=== PATIENT | male | born 1970 | race Caucasian/White ===

== ENCOUNTER 2016-06-26 18:02 | Emergency (ER) | payer BC ==
--- NOTE | 2016-06-26 19:06 | ED NURSING NOTES ---
Clinical Report - Nurses [facility] [address] [place] [address] 06/26/2016 18:02 [id number] Triage time 18:Jun 26 2016. Acuity: LEVEL 3. Chief Complaint: MUSCLE ACHES, NAUSEA, VOMITING and DIARRHEA (Acting differently). MOUNIKA COMA SCORE: [place] Coma Scale: 15- eyes open spontaneously (4); best verbal response- oriented x 4 (5); best motor response- obeys commands (6). --18:14 Eulalio Rain R.N. 18:07 06/26/16. BP: 142/101. HR: 96. RR: 18. O2 saturation: 97%. Temp: 98.9 F. Pain level now 7/10. --18:14 Eulalio Rain R.N. Weight: 90.7 kg. Height/Length: 69 inches. BMI: 29.5. --18:12 Eulalio Rain R.N. Medications OxyCODONE HCl Oral. --18:12 Eulalio Rain R.N. Allergies No Known Drug Allergy. --18:12 Eulalio Rain R.N. History Arrived by EMS. Historian: patient. This started just prior to arrival. ( Was trying to get off oxycodone that he has been on for a year decided to do coke because that's how he got off oxycodone last time he was addicted. Currently is having withdrawal symptoms and is disoriented because he hasn't done coke in 6 years.). He has had fever and weakness. Reports muscle aches. No cough, difficulty breathing or skin rash. PAST MEDICAL HX: Immunizations: up-to-date. SOCIAL HX: Former smoker, end date 2010. Regular alcohol use. History of drug use: cocaine, marijuana. SELF HARM ASSESSMENT: A self harm assessment was performed. The patient answered "no" to the question "Have you recently felt down, depressed, or hopeless?" and "Do you have thoughts of harming or killing yourself?". FALL RISK ASSESSMENT: Fall risk assessment completed. No fall risk identified. NUTRITIONAL RISK ASSESSMENT: The nutritional risk assessment revealed no deficiencies. FUNCTIONAL ASSESSMENT: Functional assessment: no impairments noted. LEARNING NEEDS ASSESSMENT: The learning needs assessment revealed no barriers. ABUSE ASSESSMENT: Abuse assessment: (yes) The patient was asked "Do you feel safe in your home?". SKIN INTEGRITY ASSESSMENT: Skin integrity risk assessment completed. No skin integrity risk identified. --18:14 Eulalio Rain R.N. PROBLEMS: Upper Extremity Pain. Headache. Concussion. Gastritis. Contusion. Pancreatitis. --18:12 Eulalio Rain R.N. ADDITIONAL SURGERIES: Abd surgery. Cholecystectomy. Gallbladder Surgery. Shoulder Surgery. Wrist. --18:12 Eulalio Rain R.N. Interventions ID band on patient. --18:14 Eulalio Rain R.N. PHYSICAL ASSESSMENT To room via stretcher. GENERAL / NEURO / PSYCH: Alert. Oriented X 4. Appears in pain. HEENT: Pupils equal, round and reactive to light. No facial asymmetry noted. Mucous membranes are pink. RESPIRATORY: Respirations not labored. Chest nontender. Breath sounds within normal limits. CVS: Normal sinus rhythm noted. Capillary refill less than 2 seconds. Pulses within normal limits. GI / : ( Patient states having diarrhea and nausea). Abdomen soft. SKIN: Skin intact. Skin is warm and dry. Normal skin turgor. --18:15 Eulalio Rain R.N. NURSING PROGRESS NOTES The initial plan of care for this patient includes an assessment with efforts to address patient positioning, appropriate ambient lighting and comfortable environmental temperature; impairment of the neurological system. Pulse oximeter and NIBP monitor placed on patient. Patient gowned. Head of bed elevated 75 degrees. Reassurance given. Call light placed in reach. Side rails up x 1. Bed placed in lowest position. Brakes of bed on. --18:15 Eulalio Rain R.N. DISPOSITION / DISCHARGE 19:00 06/26/16. BP: 136/82. HR: 86. RR: 18. O2 saturation: 99%. Temp: 98.7 F. Pain level now: 08/17. 18:45 06/26/16. BP: 134/86. HR: 80. RR: 18. O2 saturation: 97%. Pain level now: 08/17. 18:30 06/26/16. BP: 132/81. HR: 87. RR: 18. O2 saturation: 98%. 18:15 06/26/16. BP: 134/86. HR: 90. RR: 18. O2 saturation: 98%. --19:21 Eulalio Rain R.N. Condition at departure: unchanged. No learning barriers present. Discharge instructions provided and reviewed with the patient. Reviewed warnings. Reviewed medication(s). Treatments reviewed. Reviewed referrals. Patient verbalized understanding. Written instructions provided in [place]. The patient was discharged home. He left the Emergency Department ambulatory. Driving (taxi). --19:21 Eulalio Rain R.N. Departure time: 19:Jun 26 2016. --19:22 Eulalio Rain R.N. Locked/Released at 07/02/2016 7:32 by Eulalio Rain R.N.
--- NOTE | 2016-06-26 19:06 | ED CLINICAL REPORT ---
Clinical Report - Physicians/Mid Levels [facility] [address] [place] [address] 06/26/2016 18:02 Patient: ART MI Time Seen: 1807. Arrived- By private vehicle. Historian- patient. HISTORY OF PRESENT ILLNESS Chief Complaint: Wants to stop drug use. Unknown as to when symptoms started. Duration of substance abuse- Cocaine and oxycodone. Substances abused: (oxycodone and cocaine). The patient has had nausea, vomiting and diarrhea. bodyaches, generalized. The symptoms are described as moderate. Injuries noted. No recent fall. Not assaulted. reports no homicidal or suicidal ideation. Reportsno hallucinations or delusions. Similar symptoms previously: None. Recent medical care: Not recently seen/assessed. REVIEW OF SYSTEMS No headache, chest pain, difficulty breathing or skin abscess. All systems otherwise negative, except as recorded above. PAST HISTORY See nurses notes. Medications: OxyCODONE HCl Oral. Allergies: No Known Drug Allergy. SOCIAL HISTORY Smoker- current status unknown. No alcohol use or drug use. Has social support. Has place to stay. FAMILY HISTORY Negative. ADDITIONAL NOTES The nursing notes have been reviewed. PHYSICAL EXAM Vital Signs: 06/26/2016 18:07 BP: 142/101. HR: 96. RR: 18. O2 saturation: 97%. Temp: 98.9 F. Blood pressure normal. Oxygen saturation normal. Appearance: Alert. Oriented X3. No acute distress. (Polite, cooperative, pleasant). Head: Head atraumatic. Eyes: Pupils equal, round and reactive to light. ENT: Normal ENT inspection. Airway intact. Moist mucous membranes. Pharynx normal. Neck: Normal inspection. Neck supple. CVS: Normal heart rate and rhythm. Heart sounds normal. Pulses normal. Respiratory: No respiratory distress. Breath sounds normal. Abdomen: Soft and nontender. No organomegaly. (hyperactive bowel sounds in all 4 quadrants). Skin: Skin warm and dry. Normal skin color. No rash. Normal skin turgor. (piloerection). Extremities: Extremities exhibit normal ROM. No lower extremity edema. Neuro: Alert. Oriented X 3. Mood/affect normal. Speech normal. Cranial nerves normal (as tested). No cerebellar findings. No motor deficit. No sensory deficit. Reflexes normal. PROGRESS AND PROCEDURES Course of Care: the patient is a pleasant 45-year-old male presenting for evaluation of opioid withdrawal. Patient's symptoms and hi are s at t Had a discussion patient in regards to workup for evaluation with the nausea vomiting and diarrhea. Patient currently declines offers of laboratory studies and further workup for this. I discussion patient in regards to his withdrawal symptoms and encouraged patient to continue with the plan to be clean and sober. Patient is agreeable to this. Patient as been up pleasant and appropriate while here in the emergency department. No concern for danger to self or others at this time. Patient reports no homicidal or suicidal ideation. No hallucinations or delusions. Vital signs here in the emergency department are unremarkable. Patient with normal blood pressure and is afebrile with regular heart rate. Discussed with the patient's workup here in the emergency department including diagnosis, home care, and follow-up. All questions have been answered. The patient expressed understanding of these instructions and was agreeable to them. Disposition: Discharged. Condition: good. CLINICAL IMPRESSION Moderate nausea with vomiting. Opioid dependence (oxycodone), in withdrawal (acute). Diarrhea (acute). INSTRUCTIONS Warnings: GENERAL WARNINGS: Return or contact your physician immediately if your condition worsens or changes unexpectedly, if not improving as expected, or if other problems arise. Specifically return if pain, vomiting, bleeding, breathing difficulty or fever. Your Current Medications: CONTINUE TAKING THE FOLLOWING MEDICATIONS: OxyCODONE HCl Oral. Prescription Medications: Zofran (orally disintegrating tablets) 4 mg: take 1 orally every 8 hours as needed for nausea and vomiting. Dispense ten (10). No refill. Substitution is permissible. OTC Medications: Imodium (available over the counter): take according to label instructions. Follow-up: Return to the emergency department as needed. Follow up with your doctor in three days. Reason for referral: recheck today's concerns. Summary of care provided to patient via paper. Screening today revealed the patient's blood pressure to be in the normal range. The patient should follow up with a primary care provider for blood pressure management. Understanding of the discharge instructions verbalized by patient. (Electronically signed by Rober Garber Dr. 07/04/2016 4:21)
--- NOTE | 2016-07-04 04:22 | ED DISCHARGE INSTRUCTIONS ---
Patient: ART MI General Instructions [facility] VisitID: [id number] [place] [address] 45y, M Registration Date/Time: 06/26/2016 Moderate nausea with vomiting. Opioid dependence (oxycodone), in withdrawal (acute). Diarrhea (acute). INSTRUCTIONS Warnings: GENERAL WARNINGS: Return or contact your physician immediately if your condition worsens or changes unexpectedly, if not improving as expected, or if other problems arise. Specifically return if pain, vomiting, bleeding, breathing difficulty or fever. Your Current Medications: CONTINUE TAKING THE FOLLOWING MEDICATIONS: OxyCODONE HCl Oral. Prescription Medications: Zofran (orally disintegrating tablets) 4 mg: take 1 orally every 8 hours as needed for nausea and vomiting. Dispense ten (10). No refill. Substitution is permissible. OTC Medications: Imodium (available over the counter): take according to label instructions. Follow-up: Return to the emergency department as needed. Follow up with your doctor in three days. Reason for referral: recheck today's concerns. Summary of care provided to patient via paper. Screening today revealed the patient's blood pressure to be in the normal range. The patient should follow up with a primary care provider for blood pressure management. Understanding of the discharge instructions verbalized by patient. ADDITIONAL INFORMATION Diarrhea, Uncertain Cause (Adult, Report Pending) Diarrhea has several possible causes. Commonstomach fluis caused by a virus. Food poisoning, bacteria or parasites are other causes for diarrhea. Only diarrhea caused by bacteria or parasites requires treatment with an antibiotic. Diarrhea from a virus or food poisoning improves with simple home treatment. A stool sample is needed to make the diagnosis of an infection with bacteria or parasites. Up to three stool specimens may be required to diagnose This may take up to two days to get the result. It may be necessary to wait until the stool test is complete to make the diagnosis and select the best antibiotic to prescribe. Home Care: If symptoms are severe, rest at home for the next 24 hours or until you are feeling better. You may use acetaminophen (Tylenol) or ibuprofen (Motrin, Advil) to control fever, unless another medicine was prescribed. [NOTE: If you have chronic liver or kidney disease or ever had a stomach ulcer or GI bleeding, talk with your doctor before using these medicines.] (Aspirin should never be used in anyone under 18 years of age who is ill with a fever. It may cause severe liver damage.) Avoid tobacco, caffeine and alcohol, which may worsen your symptoms. If anti-diarrhea medicine was prescribed, take this only as directed. Sometimes anti-diarrhea medicine can make your condition worse if the cause is an infectious diarrhea. Therefore, anti-diarrhea medicine should not be taken for this condition unless advised by your doctor. During The First 12-24 Hours follow the diet below: BEVERAGES: Sport drinks like Gatorade, soft drinks without caffeine; aracely lou, mineral water (plain or flavored), decaffeinated tea and coffee. SOUPS: Clear broth, consomm and bouillon DESSERTS: Plain gelatin (Jell-O), popsicles and fruit juice bars. During The Next 24 Hours you may add the following to the above: Hot cereal, plain toast, bread, rolls, crackers Plain noodles, rice, mashed potatoes, chicken noodle or rice soup Unsweetened canned fruit (avoid pineapple), bananas Limit fat intake to less than 15 grams per day by avoiding margarine, butter, oils, mayonnaise, sauces, gravies, fried foods, peanut butter, meat, poultry and fish. Limit fiber; avoid raw or cooked vegetables, fresh fruits (except bananas) and bran cereals. Limit caffeine and chocolate. No spices or seasonings except salt. During The Next 24 Hours Gradually resume a normal diet, as you feel better and your symptoms lessen. Follow Up with your doctor or as advised if you are not improving over the next two days. If you were asked to bring a specimen from home, bring the sample on the day of collection. You may call in 2 days (or as directed) for the results. Get Prompt Medical Attention if any of the following occur: Increasing abdominal pain or constant lower right abdominal pain Continued vomiting (unable to keep liquids down) Frequent diarrhea (more than 5 times a day) Blood in vomit or stool (black or red color) Reduced oral intake Dark urine, reduced urine output Weakness, dizziness, fainting Drowsiness, confusion, stiff neck or seizure Fever of 100.4F (38C) oral or higher, not better with fever medication New rash Ondansetron Oral disintegrating tablet What is this medicine? ONDANSETRON (on LORNA se vesna) is used to treat nausea and vomiting caused by chemotherapy. It is also used to prevent or treat nausea and vomiting after surgery. How should I use this medicine? These tablets are made to dissolve in the mouth. Do not try to push the tablet through the foil backing. With dry hands, peel away the foil backing and gently remove the tablet. Place the tablet in the mouth and allow it to dissolve, then swallow. While you may take these tablets with water, it is not necessary to do so. Talk to your power regulator regarding the use of this medicine in children. Special care may be needed. What side effects may I notice from receiving this medicine? Side effects that you should report to your doctor or health medicare sales representative as soon as possible: allergic reactions like skin rash, itching or hives, swelling of the face, lips, or tongue breathing problems dizziness fast or irregular heartbeat feeling faint or lightheaded, falls fever and chills swelling of the hands and feet tightness in the chest Side effects that usually do not require medical attention (report to your doctor or health medicare sales representative if they continue or are bothersome): constipation or diarrhea headache What may interact with this medicine? Do not take this medicine with any of the following medications: -apomorphine -cisapride -dofetilide -dronedarone -pimozide -thioridazine -ziprasidone This medicine may also interact with the following medications: -carbamazepine -phenytoin -rifampicin -tramadol -other medicines that prolong the QT interval (cause an abnormal heart rhythm) What if I miss a dose? If you miss a dose, take it as soon as you can. If it is almost time for your next dose, take only that dose. Do not take double or extra doses. Where should I keep my medicine? Keep out of the reach of children. Store between 2 and 30 degrees C (36 and 86 degrees F). Throw away any unused medicine after the expiration date. What should I tell my health care provider before I take this medicine? They need to know if you have any of these conditions: heart disease history of irregular heartbeat liver disease low levels of magnesium or potassium in the blood an unusual or allergic reaction to ondansetron, granisetron, other medicines, foods, dyes, or preservatives or trying to get breast-feeding What should I watch for while using this medicine? Check with your doctor or health medicare sales representative as soon as you can if you have any sign of an allergic reaction. You have been given the following additional information: Diarrhea, Unk Cause (Adult) Report Pendg Ondansetron Oral disintegrating tablet (Electronically signed by Rober Garber Dr. 07/04/2016 4:21)
--- NOTE | 2016-07-04 04:22 | ED MED RECONCILIATION SUMMARY ---
Patient: ART MI Medication Reconciliation Report Located [facility] VisitID: [id number] [address] [place] [address] 45y, M Registration Date/Time: 06/26/2016 Weight: 90.7 kg Height/Length: 69 in. BMI: 29.5 ALLERGIES: No Known Drug Allergy The patient's Home Medications are listed below: CONTINUE TAKING THE FOLLOWING MEDICATIONS: OxyCODONE HCl Oral The source(s) of the original Home Medication information: Not obtained. The following Medications were given to the patient in the Emergency Department: None. The following Medications were prescribed to the patient: Zofran (orally disintegrating tablets) 4 mg: take 1 orally every 8 hours as needed for nausea and vomiting. Dispense ten (10). No refill. Substitution is permissible. -- Rober Garber Dr. Imodium (available over the counter): take according to label instructions. -- Rober Garber Dr.
--- NOTE | 2016-07-04 04:22 | ED MAR SUMMARY ---
..... Medication Administration Record [facility] [address] [place], [place] [id number] Patient: ART MI Visit ID: [id number] 45y, M Weight: 90.7 kg Height/Length: 69 in BMI: 29.5 ALLERGIES: No Known Drug Allergy
--- NOTE | 2016-07-04 04:22 | ED MAR SUMMARY ---
..... Medication Administration Record [facility] [address], [place] [id number] Patient: ART MI Visit ID: [id number] 45y, M Weight: 90.7 kg Height/Length: 69 in BMI: 29.5 ALLERGIES: No Known Drug Allergy
--- NOTE | 2016-07-04 04:22 | ED MED RECONCILIATION SUMMARY ---
Patient: ART MI Medication Reconciliation Report [facility] VisitID: [id number] [address] [place] [address] 45y, M Registration Date/Time: 06/26/2016 Weight: 90.7 kg Height/Length: 69 in. BMI: 29.5 ALLERGIES: No Known Drug Allergy The patient's Home Medications are listed below: CONTINUE TAKING THE FOLLOWING MEDICATIONS: OxyCODONE HCl Oral The source(s) of the original Home Medication information: Not obtained. The following Medications were given to the patient in the Emergency Department: None. The following Medications were prescribed to the patient: Zofran (orally disintegrating tablets) 4 mg: take 1 orally every 8 hours as needed for nausea and vomiting. Dispense ten (10). No refill. Substitution is permissible. -- Rober Garber Dr. Imodium (available over the counter): take according to label instructions. -- Rober Garber Dr.
== END 2016-06-26 19:20 | disposition home or self-care (01) ==
LOC: ED SRH 18:02
DX: F11.23 Opioid dependence with withdrawal (principal); R11.2 Nausea with vomiting, unspecified; F11.10 Opioid abuse, uncomplicated; R19.7 Diarrhea, unspecified